=== PATIENT | male | born 2000 | race Two or more races ===

== ENCOUNTER 2024-09-23 20:35 | Emergency (ER) | payer MEDICAID, OTHER ==
[~2024-09-23] VITALS: Ht 175.3 cm; Wt 113.0 kg
--- NOTE | 2024-09-23 20:51 | ED.PDOC ---
History of Present Illness HPI Comments 24 y/o obese M presents with c/c nonradiating, substernal chest pain and headache. Patient reports sudden and unprovoked onset of chest pain, this evening, 2 hours prior to arrival, while at rest, watching television, after dealing with a persistent headache for over the past 2x days. No recent injuries, sick contact, stressors, or strenuous activities endorsed. Only significant history of HTN and medication noncompliance along with occasional alcohol use. Denies any shortness of breath, palpitations, dizziness, vision or speech changes, or further associated symptoms. Upon arrival to ED triage, patient was found hypertensive at 158/104. Chief Complaint: Chest Pain Time Seen by MD: 20:36 Reviewed Notes: Nurses Notes, Medications, Allergies Information Source: Patient Mode of Arrival: Ambulatory Severity: Moderate Timing: Hours Duration: Since onset Prehospital treatment: None Past Medical History PAST MEDICAL HISTORY: HTN Past Medical History (Other): noncompliance Surgical History: Denies all surgeries Family History Family History: Unknown Social History Smoker: Non-Smoker Alcohol: Occasionally Drugs: Denies Drug Use Lives In: Home All Other Systems: Reviewed and Negative (Comprehensive systems review obtained and negative except for what is stated in the HPI.) Physical Exam General Appearance: No Apparent Distress, Obese HEENT: Normal ENT Inspection, Pharynx Normal, TMs Normal Neck: Full Range of Motion, Non-Tender, Normal, Normal Inspection Respiratory: Chest Non-Tender, Lungs Clear, No Accessory Muscle Use, No Respiratory Distress, Normal Breath Sounds Cardiovascular: No Edema, No JVD, No Murmur, No Gallop, Normal Peripheral Pulses, Regular Rate/Rhythm Breast Exam: Deferred Gastrointestinal: No Organomegaly, Non Tender, No Pulsatile Mass, Normal Bowel Sounds, Soft Genitalia: Deferred Pelvic: Deferred Rectal: Deferred Extremities: No calf tenderness, Normal capillary refill, Normal inspection, Normal range of motion, Non-tender, No pedal edema Musculoskeletal : Apperance: Normal Neurologic: Alert, knitting machine fixer II-XII nml as Tested, No Motor Deficits, Normal Affect, Normal Mood, No Sensory Deficits Cerebellar Function: Normal Reflexes: Normal Skin: Dry, Normal Color, Warm Lymphatic: No Adenopathy Was a procedure done? Was a procedure done?: No EKG EKG : Pulse Rate (adult): 87 [place]: Normal Cardiac Rhythm: NSR Block: None Hypertrophy: None ST: Normal Differential Dx Considerations may include: CO, PE, ACS, URI, PNA, angina, anxiety, hypertension - uncontrolled, noncompliance, dehydration, electrolyte imbalance, viral syndrome, among others X-Ray, Labs, Meds, VS Vital Signs Date Time Temp Pulse Resp B/P (MAP) Pulse Ox O2 Delivery O2 Flow Rate FiO2 09/23/24 21:29 83 09/23/24 20:51 87 09/23/24 20:40 87 09/23/24 20:36 98.0 92 18 158/104 (122) 100 98.0 Lab Test 09/23/24 21:28 09/23/24 20:43 Range/Units Troponin I High Sensitivity 3 L 4 </=54 ng/L White Blood Count 8.9 4.4-10.8 10^3/uL Red Blood Count 5.16 4.5-5.90 10^6/uL Hemoglobin 16.3 13.5-17.5 g/dL Hematocrit 46.2 41.0-53.0 % Mean Corpuscular Volume 89.5 80.0-100.0 fL Mean Corpuscular Hemoglobin 31.5 28.0-32.0 pg Mean Corpuscular Hemoglobin Concent 35.2 32.0-36.0 g/dL Red Cell Distribution Width 13.3 11.8-14.3 % Platelet Count 294 140-450 10^3/uL Mean Platelet Volume 8.9 6.9-10.8 fL Neutrophils (%) (Auto) 62.5 37.0-80.0 % Lymphocytes (%) (Auto) 27.6 10.0-50.0 % Monocytes (%) (Auto) 7.6 0.0-12.0 % Eosinophils (%) (Auto) 1.5 0.0-7.0 % Basophils (%) (Auto) 0.8 0.0-2.0 % Neutrophils # (Auto) 5.5 1.6-8.6 10 ^3/uL Lymphocytes # (Auto) 2.4 0.4-5.4 10 ^3/uL Monocytes # (Auto) 0.7 0-1.3 10 ^3/uL Eosinophils # (Auto) 0.1 0-0.8 10 ^3/uL Basophils # (Auto) 0.1 0-0.2 10 ^3/uL Nucleated Red Blood Cells 0.1 % Sodium Level 139 136-145 mmol/L Potassium Level 3.8 3.5-5.1 mmol/L Chloride Level 104 98-107 mmol/L Carbon Dioxide Level 26 20-31 mmol/L Anion Gap 9 5-15 Blood Urea Nitrogen 10 9-23 mg/dL Creatinine 0.85 0.700-1.30 mg/dL Glomerular Filtration Rate Calc 124 >90 mL/min BUN/Creatinine Ratio 11.8 10.0-20.0 Serum Glucose 101 74-106 mg/dL Calcium Level 10.5 H 8.7-10.4 mg/dL [place] [id number] Ph: [phone] DIAGNOSTIC IMAGING Diagnostic Imaging Report : [id number] Signed PATIENT: MICHAEL ROMAN ACCT: [id number] UNIT: [id number] : 2000 LOC: ER ROOM / BED: / AGE / SEX: 24 / M ADM STATUS: REG ER SERVICE 45 ORDERING PHYSICIAN: DEVON HASSAN MD PROCEDURE(s): CXRP - CHEST PORTABLE REASON: chest pain ORDER NUMBER(s): [id number], ACCESSION NUMBER(s): [id number] EXAM: XY CHEST PORTABLE DATE OF SERVICE: 09/23/2024 08:46 PM INDICATION: chest pain TECHNIQUE: Single frontal view. COMPARISON: None FINDINGS: No focal consolidations. No pleural effusion or pneumothorax. Cardiac silhouette is within normal limits. IMPRESSION: 1. No focal consolidations. ATED BY: VIRGILIO ONOFRE MD DICTATED DATE/TIME: 09/23/242102 SIGNED BY: VIRGILIO ONOFRE MD SIGNED DATE/TIME: 09/23/242102 CC: Time of 1ST Reevaluation: 21:06 Reevaluation 1ST: Unchanged Patient Education/Counseling: Diagnosis, Treatment, Need For Follow Up Family Education/Counseling: No Family Present Additional Information Previous visits reviewed: N/A The following tests were ordered, and results were reviewed by me: CXR, EKG, CBC, BMP, troponin Additional Information was gathered from interviewing the following independent historians: N/A I reviewed and agreed with the following test results read by other providers: CXR I discussed treatment and results with medical personnel and: patient SEPSIS Sepsis Screen Physician Orders Electrocardigram (09/23/24 20:37) Troponin-I Hs (09/23/24 23:37) Electrocardigram (09/23/24 21:37) Electrocardigram (09/23/24 23:37) Chest Portable (09/23/24 20:46) Vital Signs Date Time Temp Pulse Resp B/P (MAP) Pulse Ox O2 Delivery O2 Flow Rate FiO2 09/23/24 21:29 83 09/23/24 20:51 87 09/23/24 20:40 87 09/23/24 20:36 98.0 92 18 158/104 (122) 100 98.0 Laboratory Tests Test 09/23/24 20:43 White Blood Count 8.9 10^3/uL (4.4-10.8) Departure 1 Departure Time of Disposition: 23:25 (Patient presented with chest pain that was concerning for possible STEMI, ACS, PE, Pneumonia, Muscle Strain, COPD, Dissection. Data: 1. I ordered and reviewed the result of at least 3 labs including a CBC, BMP, and Troponin. 2. I independently interpreted the following tests: EKG which shows normal sinus rhythm and Chest X-ray which shows a benign chest.Risk:This patient presented with a high risk of morbidity due to further diagnostic testing or treatment and may suffer from an acute cardiac or respiratory disorder. After review of all the data patient is unlikely to have a pe , dissection, and is low risk for acs. Patient is stable at this time.Workup so far is benign and patient will be discharged with outpatient followup. ) Impression: Primary Impression: Acute chest pain Disposition: HOME / SELF CARE / HOMELESS Condition: Stable Additional Instructions: You presented today with chest pain. Your workup today was benign including labs, troponin, EKG, chest x-ray. Your pain may be from musculoskeletal strain, acid reflux, anxiety, or many other factors. It is important to follow up with your regular doctor within 1 week. If your symptoms worsen or you have any other concerns please return to the emergency room. Discharged With: Self Critical Care Note Critical Care Time?: No Stability Stability form required: No Heart Score Heart Score: Heart Score Response (Comments) Value History Slightly Suspicious 0 EKG Normal 0 Age <45 0 Risk Factors 1 or 2 risk factors 1 Troponin Normal limit 0 Total 1 I personally scribed for DEVON HASSAN MD ([facility] on 09/23/24 at 20:51. Electronically submitted by Jonh Hoskins ([email or web address]). I personally scribed for DEVON HASSAN MD ([facility]) on 09/23/24 at 20:52. Electronically submitted by Jonh Hoskins ([email or web address]). I personally scribed for DEVON HASSAN MD ([facility]) on 09/23/24 at 21:34. Electronically submitted by Jonh Hoskins ([email or web address]). DEVON HASSAN MD Sep 23, 2024 20:51
[2024-09-23 20:53] LABS: Hematocrit 46.2 % (41.0-53.0); Hemoglobin 16.3 g/dL (13.5-17.5); Mean Corpuscular Hemoglobin 31.5 pg (28.0-32.0); Mean Corpuscular Volume 89.5 fL (80.0-100.0); Nucleated Red Blood Cells % 0.1 %
[2024-09-23 21:04] LABS: Chloride 104 mmol/L (98-107); Potassium 3.8 mmol/L (3.5-5.1); Sodium 139 mmol/L (136-145)
[2024-09-23 21:05] LABS: Anion Gap 9 (5-15); Carbon Dioxide 26 mmol/L (20-31)
--- NOTE | 2024-09-23 21:05 | DVH ---
EXAM: XY CHEST PORTABLE DATE OF SERVICE: 09/23/2024 08:46 PM INDICATION: chest pain TECHNIQUE: Single frontal view. COMPARISON: None FINDINGS: No focal consolidations. No pleural effusion or pneumothorax. Cardiac silhouette is within normal limits. IMPRESSION: 1. No focal consolidations.
[2024-09-23 21:10] LABS: BUN/Creatinine Ratio 11.8 (10.0-20.0); Blood Urea Nitrogen 10 mg/dL (9-23); Glucose 101 mg/dL (74-106)
[2024-09-23 21:11] LABS: Calcium 10.5 mg/dL (8.7-10.4)
[2024-09-24 01:40] VITALS: BP 132/84; RESP 18; TEMP 97.9; O2SAT 96
[2024-09-24 01:41] VITALS: PULSE 68
[2024-09-24] MEDS: FAMOTIDINE 20 MG TAB PO ONE (01:42)
[2024-09-24] MEDS: MAALOX PLUS or MAALOX 30 ML PO ONE (01:43)
--- NOTE | 2024-09-24 03:24 | ECG ---
[facility] Test Date: 2024-09-23 Test Time: 20:40:05 Pat Name: MICHAEL NORMAN Department: ER Room: Gender: M Equine Intern: SETH : 2000 Requested By: DEVON HASSAN Order Number: [id number] Reading MD: Hiro Luong Measurements Intervals [place] Rate: 87 P: 31 OR: 143 QRS: 93 QRSD: 99 T: 12 QT: 337 QTc: 406 Interpretive Statements Sinus rhythm Borderline right axis deviation Electronically Signed On 09-25-2024 16:59:18 PDT by Hiro Luong Please click the below link to view image of tracing.
--- NOTE | 2024-09-25 07:47 | ECG ---
[facility] Test Date: 2024-09-23 Test Time: 21:29:45 Pat Name: MICHAEL NORMAN Department: ED Room: Gender: M Loftsman/Woman: JILL : 2000 Requested By: DEVON HASSAN Order Number: [id number] Reading MD: Hiro Luong Measurements Intervals [place] Rate: 83 P: 22 [place]: 129 QRS: 86 QRSD: 101 T: 15 QT: 340 QTc: 400 Interpretive Statements Sinus rhythm Electronically Signed On 09-25-2024 16:59:21 PDT by Hiro Luong Please click the below link to view image of tracing.
== END 2024-09-24 01:43 | disposition home or self-care (01) ==
LOC: ER 20:35
DX: R07.2 Precordial pain (principal); F10.90 Alcohol use, unspecified, uncomplicated; I10 Essential (primary) hypertension; E66.9 Obesity, unspecified; Z68.36 Body mass index [BMI] 36.0-36.9, adult; Y90.9 Presence of alcohol in blood, level not specified
CPT/HCPCS: 36415; 71045; 80048; 84484; 85025; 93005

== ENCOUNTER 2024-10-16 23:44 | Emergency (ER) | payer MEDICAID ==
[~2024-10-16] VITALS: Ht 175.3 cm; Wt 117.0 kg
[2024-10-16 23:46] VITALS: BP 144/89; PULSE 76; RESP 16; TEMP 99.3; O2SAT 99
--- NOTE | 2024-10-17 00:37 | ED.PDOC ---
HPI (NEURO) HPI Comments 24-year-old male presents to ER with complaints of headache x1 day. Patient reports that he woke up with 1/10 left-sided occipital headache with radiation towards the left-sided neck at 1:00 a.m. prior to arrival to ER. Denies use of medications for current symptoms. Patient presents to ER ambulatory on arrival, alert oriented x4, with steady gait, in no distress. Denies fever, head injury, nausea/vomiting, numbness/tingling, dizziness, vision changes, confusion, runny nose, recent illness or any further symptoms/complaints Chief Complaint: Headache Time Seen by MD: 00:05 Primary Care Provider: UNKNOWN Reviewed Notes: Nurses Notes, Medications, Allergies Information Source: Patient Mode of Arrival: Ambulatory Past Medical History PAST MEDICAL HISTORY: HTN Surgical History: Denies all surgeries Family History Family History: Unknown Social History Smoker: Non-Smoker Alcohol: Occasionally Drugs: Denies Drug Use Lives In: Home Constitutional: denies: chills, diaphoresis, fatigue, fever, malaise, sweats, weakness, others EENTM: denies: blurred vision, double vision, ear bleeding, ear discharge, ear drainage, ear pain, ear ringing, eye pain, eye redness, hearing loss, mouth pain, mouth swelling, nasal discharge, nose bleeding, nose congestion, nose pain, photophobia, tearing, throat pain, throat swelling, voice changes, others Respiratory: denies: cough, hemoptysis, orthopnea, SOB at rest, shortness of breath, SOB with excertion, stridor, wheezing, others Cardiovascular: denies: chest pain, dizzy spells, diaphoresis, Dyspnea on exertion, edema, irregular heart beat, left arm pain, lightheadedness, palpitations, PND, syncope, others Gastrointestinal: denies: abdomen distended, abdominal pain, blood streaked bowels, constipated, diarrhea, dysphagia, difficulty swallowing, hematemesis, melena, nausea, poor appetite, poor fluid intake, rectal bleeding, rectal pain, vomiting, others Genitourinary: denies: burning, dysuria, flank pain, frequency, hematuria, incontinence, penile discharge, penile sore, pain, testicle pain, testicle swelling, urgency, others Neurological: reports: others (As stated in HPI) Musculoskeletal: denies: back pain, gout, joint pain, joint swelling, muscle pain, muscle stiffness, neck pain, others Integumetry: denies: bruises, change in color, change in hair/nails, dryness, laceration, lesions, lumps, rash, wounds, others Allergic/Immunocompromised: denies: Difficulty Healing, Frequent Infections, Hives, Itching, others Hematologic/Lymphatic: denies: anemia, blood clots, easy bleeding, easy bru ising, swollen glands, others Endocrine: denies: excessive hunger, excessive sweating, excessive thirst, e xcessive urination, flushing, intolerance to cold, intolerance to heat, unexplained weight gain, unexplained weight loss, others Psychiatric: denies: anxiety, bipolar disorder, depression, hopeless, panic disorder, schizophrenia, sleepless, suicidal, others Physical Exam General Appearance: No Apparent Distress, Obese HEENT: Normal ENT Inspection, PERRL/EOMI, Pharynx Normal, TMs Normal Neck: Full Range of Motion, Non-Tender, Normal Respiratory: Chest Non-Tender, Lungs Clear, No Accessory Muscle Use, No Respiratory Distress, Normal Breath Sounds Cardiovascular: No Murmur, No Gallop, Regular Rate/Rhythm Breast Exam: Deferred Gastrointestinal: NOT DONE Genitalia: Deferred Pelvic: Deferred Rectal: Deferred Extremities: Normal capillary refill, Normal range of motion Neurologic: Alert, orthopedic coder II-XII nml as Tested, No Motor Deficits, Normal Affect, Normal Mood, No Sensory Deficits Cerebellar Function: Normal Reflexes: Normal Skin: Dry, Normal Color, Warm Lymphatic: No Adenopathy Was a procedure done? Was a procedure done?: No Sedation Sedation?: No Differential Diagnosis (SZ) Headache: Cluster, Subarachnoid Hemorrhage, Subdural Hemorrhage, Mass Lesion, Other (fracture, closed head injury) X-Ray, Labs, Meds, VS Vital Signs Date Time Temp Pulse Resp B/P (MAP) Pulse Ox O2 Delivery O2 Flow Rate FiO2 10/16/24 23:46 99.3 76 16 144/89 99 99.3 Patient had improvement in symptoms and in no distress prior to discharge Advised to drink plenty of fluids Advised to follow up with PCP in 1-2 days Patient verbalized understanding and agreeable with current plan of care Advised to return to ER immediately if symptoms worsen Time of 1ST Reevaluation: 00:12 Reevaluation 1ST: N/A Patient Education/Counseling: Diagnosis, Treatment, Prognosis, Need For Follow Up Family Education/Counseling: No Family Present Departure 1 Departure Time of Disposition: 00:36 Impression: Primary Impression: Tension headache Disposition: 01 HOME / SELF CARE / HOMELESS Condition: Stable Discharged With: Self Critical Care Note Critical Care Time?: No Stability Stability form required: No Heart Score Heart Score: Heart Score Response (Comments) Value History N/A 0 EKG N/A 0 Age N/A 0 Risk Factors N/A 0 Troponin N/A 0 Total 0 DAVID CHOWDHURY Oct 17, 2024 00:37
== END 2024-10-17 00:48 | disposition home or self-care (01) ==
LOC: ER 23:44
DX: G44.209 Tension-type headache, unspecified, not intractable (principal); I10 Essential (primary) hypertension; F10.90 Alcohol use, unspecified, uncomplicated; Y90.9 Presence of alcohol in blood, level not specified

== ENCOUNTER 2024-10-25 01:08 | Emergency (ER) | payer MEDICAID ==
[~2024-10-25] VITALS: Ht 175.3 cm; Wt 118.1 kg
[2024-10-25] MEDS: NITROGLYCERIN 0.4 MG SL TAB SL ONE (01:43)
[2024-10-25] MEDS: ASPirin-EC 325mg tab PO ONE (01:44)
[2024-10-25 01:45] VITALS: BP 148/95; RESP 19; TEMP 98; O2SAT 96
--- NOTE | 2024-10-25 01:48 | ED.PDOC ---
HPI Comments HPI: 24 year old male who came to ER for high blood pressure. Patient with hypertension but has not been taking his medications. Had substernal chest pains yesterday that lasted 30 minutes that resolved spontaneously. About 3 hours prior to arrival, patient was driving well-developed chest pains again, lasting 20-30 minutes, associated with left arm numbness, and shortness a breath. Upon arrival blood pressure was 162/99 mm Hg. Denies any family history of coronary artery disease. Initial Vitals BP: 168/99 HR: 102 RR: 18 O2: 99% Temp: 98.6 Past Medical History: Hypertension Past Surgical History: Denies Social History: (+) occasional ETOH (drank whiskey 3 days ago), Denies smoking, and drug use. Medications: Allergies: Penicillin HPI: Poor Historian. REVIEW OF SYSTEMS: CONSTITUTIONAL: Denies acute: fever, diaphoresis, chills, generalized weakness. HEAD: Denies acute: headache, photophobia Eyes: Denies acute: Double vision, vision loss, eye pain, eye discharge. EARS: Denies acute: tinnitus, hearing loss, ear discharge, ear pain, THROAT: Denies acute: sore throat, swelling, difficulty swallowing , pain with swallowing, change in voice. NECK: Denies acute: neck pain, neck swelling, stiff neck. HEART: Denies acute : , palpitations, LUNGS: Denies acute: wheezing, cough, hemoptysis ABDOMEN: Denies acute: abdominal pain, Nausea, Vomiting, diarrhea, melena , hematemesis, hematochezia SKIN: Denies acute: rash, redness, lesions, itchiness. EXTREMITIES: Denies acute: calf pain, numbness, tingling, weakness, denies pain in extremity. Denies acute: Low back pain. Neuro: Denies acute: focal neurological deficit, motor or sensory focal neurological deficit, tremors, seizure like activity, confusion, dizziness, change in mental status, loss of bowel or bladder function, cauda equina like symptoms. : Denies acute: dysuria, hematuria, flank pain, increase in urinary frequency. PSYCH: Denies acute: hallucination, suicidal ideation, homicidal ideation. PHYSICAL EXAM: General: ---no-----acute distress, awake and alert. Head: normocephalic, atraumatic. Neck: supple, trachea is midline, no swelling. Throat: Normal phonation. Eyes:, no erythema, no purulent discharge, no proptosis, no icterus. Heart: regular tachycardic, no significant murmur appreciated. Lungs: no apparent respiratory distress, Able to speak in full sentences. No wheezing, no rhonchi, no crackles. No stridors Clear to auscultation bilaterally. Abdomen: non tender to palpation, non distended, soft, no guarding, no rebound, + bowel sounds. Neuro: Awake, Alert, oriented to name, self, situation, follows commands GCS=15. Speech is normal. Skin: no petechia, no purpura, no cyanosis, non-pale, not jaundice. Lower extremities: --no - Pitting edema no deformity, no focal swelling, no calf TTP. Makes eye contact. moves all four extremities. Face: no apparent facial droop. Ambulating in the ED independently. ED COURSE: DISCLAIMER: This medical document was created using an electronic medical record system with voice recognition software and computerized dictation system. Although this document has been carefully reviewed, there might still be some phonetic and typographical errors. Occasional wrong-word or "sound-alike" substitutions may have occurred due to the inherent limitations of voice recognition software. These areas are purely typographical due to imperfections of the software programs and do not reflect any compromise in the patient's medical care. Please read the chart carefully and recognize, using context, where these substitutions have occurred. Chief Complaint: High Blood Pressure Time Seen by MD: 01:48 Primary Care Provider: UNKNOWN Reviewed Notes: Allergies Allergies: Coded Allergies: Penicillins (Verified Allergy, Unknown, 10/25/24) Information Source: Patient Mode of Arrival: Ambulatory Past Medical History PAST MEDICAL HISTORY: HTN Surgical History: Denies all surgeries Family History Family History: Unknown Social History Smoker: Non-Smoker Alcohol: Occasionally Drugs: Denies Drug Use Lives In: Home EKG EKG : Pulse Rate (adult): 103 Cardiac Rhythm: ST Was a procedure done? Was a procedure done?: No X-Ray, Labs, Meds, VS Vital Signs Date Time Temp Pulse Resp B/P (MAP) Pulse Ox O2 Delivery O2 Flow Rate FiO2 10/25/24 01:52 103 10/25/24 01:45 105 19 96 Room Air 10/25/24 01:45 98.0 105 19 148/95 (112) 96 98.0 10/25/24 01:19 103 10/25/24 01:10 98.6 102 18 168/99 99 98.6 Lab Test 10/25/24 02:30 10/25/24 01:16 Range/Units Troponin I High Sensitivity Pending < 3 L </=54 ng/L White Blood Count 8.6 4.4-10.8 10^3/uL Red Blood Count 5.46 4.5-5.90 10^6/uL Hemoglobin 17.1 13.5-17.5 g/dL Hematocrit 48.9 41.0-53.0 % Mean Corpuscular Volume 89.4 80.0-100.0 fL Mean Corpuscular Hemoglobin 31.2 28.0-32.0 pg Mean Corpuscular Hemoglobin Concent 34.9 32.0-36.0 g/dL Red Cell Distribution Width 13.0 11.8-14.3 % Platelet Count 308 140-450 10^3/uL Mean Platelet Volume 9.3 6.9-10.8 fL Neutrophils (%) (Auto) 57.9 37.0-80.0 % Lymphocytes (%) (Auto) 32.2 10.0-50.0 % Monocytes (%) (Auto) 7.4 0.0-12.0 % Eosinophils (%) (Auto) 1.6 0.0-7.0 % Basophils (%) (Auto) 0.9 0.0-2.0 % Neutrophils # (Auto) 5.0 1.6-8.6 10 ^3/uL Lymphocytes # (Auto) 2.8 0.4-5.4 10 ^3/uL Monocytes # (Auto) 0.6 0-1.3 10 ^3/uL Eosinophils # (Auto) 0.1 0-0.8 10 ^3/uL Basophils # (Auto) 0.1 0-0.2 10 ^3/uL Nucleated Red Blood Cells 0.2 % Sodium Level 140 136-145 mmol/L Potassium Level 3.4 L 3.5-5.1 mmol/L Chloride Level 104 98-107 mmol/L Carbon Dioxide Level 27 20-31 mmol/L Anion Gap 9 5-15 Blood Urea Nitrogen 6 L 9-23 mg/dL Creatinine 0.86 0.700-1.30 mg/dL Glomerular Filtration Rate Calc 124 >90 mL/min BUN/Creatinine Ratio 7.0 L 10.0-20.0 Serum Glucose 103 74-106 mg/dL Calcium Level 9.7 8.7-10.4 mg/dL Current Medications Medications (Trade) Dose Ordered Sig/Satinder Route Start Time Stop Time Status Last Admin Aspirin (Ecotrin Enteric Coated Tablet) 325 mg ONCE ONCE PO 10/25/24 01:30 10/25/24 01:31 DC 10/25/24 01:44 Time of 1ST Reevaluation: 01:52 Reevaluation 1ST: Unchanged Patient Education/Counseling: Diagnosis, Treatment Family Education/Counseling: No Family Present SEPSIS Sepsis Screen Date sepsis recognized/suspect: Oct 25, 2024 Time Sepsis recognized/suspect: 109 Recent Procedure: No On Antibiotic Therapy: No Respiratory Rate >20: No Heart Rate >90: Yes Temp<36 C (96.8 F) or >38.3 C: No SBP <90 or MAP <65 mmHG: No New Acute Mental Status Change: No Is the patient on CPAP, BIPAP,: No Physician Orders Tobacco Warehouse Agent (10/25/24 ) Drug Screen (10/25/24 01:16) Chest Portable (10/25/24 01:16) Electrocardigram (10/25/24 01:16) Troponin-I Hs (10/25/24 02:16) Troponin-I Hs (10/25/24 04:16) Electrocardigram (10/25/24 02:16) Electrocardigram (10/25/24 04:16) Vital Signs Date Time Temp Pulse Resp B/P (MAP) Pulse Ox O2 Delivery O2 Flow Rate FiO2 10/25/24 01:52 103 10/25/24 01:45 105 19 96 Room Air 10/25/24 01:45 98.0 105 19 148/95 (112) 96 98.0 10/25/24 01:19 103 10/25/24 01:10 98.6 102 18 168/99 99 98.6 Laboratory Tests Test 10/25/24 01:16 White Blood Count 8.6 10^3/uL (4.4-10.8) Medications Medications Dose Ordered Sig/Satinder Route Start Time Stop Time Status Last Admin Dose Admin Aspirin 325 mg ONCE ONCE PO 10/25/24 01:30 10/25/24 01:31 DC 10/25/24 01:44 Departure 1 Departure Time of Disposition: 03:30 Impression: Primary Impression: Hypertension Additional Impression: Noncompliance with medication regimen Disposition: HOME / SELF CARE / HOMELESS Condition: Stable Additional Instructions: Additional instructions: You MUST follow-up with your primary care/family doctor in 1 to 2 days. If you are unable to see your primary care/family doctor, please return to our emergency room for re-assessment and re-evaluation in 1 to 2 days. Return to the emergency room here in our facility or to the nearest ER [facility] if your symptoms change or worsen. CONSULTATIONS: you MUST Follow-up for consultation as soon as possible with: ---cardiology in 1-2 days. You MUST call the consultants office yourself to make an appointment. You may need to arrange that through your insurance and/or your primary/family doctor. If you are unable to see the senior health consultant in 1 to 2 days, you must return to our emergency room (or any other ER of your choice) for re-assessment and re- evaluation. Adequate fluid hydration. Avoid alcohol. Monitoring blood pressure at home at least 3 times a day. You must comply with your blood pressure medications to prevent further deterioration and . Discharged With: Self Critical Care Note Critical Care Time?: No Heart Score Heart Score: Heart Score Response (Comments) Value History Slightly Suspicious 0 EKG Normal 0 Age <45 0 Risk Factors 1 or 2 risk factors 1 Troponin Normal limit 0 Total 1 I personally scribed for JENNIFER RODRIGUEZ DO ([email or web address]) on 10/25/24 at 01:48. Electronically submitted by Augustin Saba ([email or web address]). I personally scribed for JENNIFER RODRIGUEZ DO ([email or web address]) on 10/25/24 at 01:52. Electronically submitted by Augustin Saba ([email or web address]). I personally scribed for JENNIFER RODRIGUEZ DO ([email or web address]) on 10/25/24 at 01:55. Electronically submitted by Augustin Saba ([email or web address]). I personally scribed for JENNIFER RODRIGUEZ DO ([email or web address]) on 10/25/24 at 03:29. Electronically submitted by Augustin Saba ([email or web address]). JENNIFER RODRIGUEZ DO Oct 25, 2024 01:48
[2024-10-25 01:50] LABS: Hematocrit 48.9 % (41.0-53.0); Hemoglobin 17.1 g/dL (13.5-17.5); Mean Corpuscular Hemoglobin 31.2 pg (28.0-32.0); Mean Corpuscular Volume 89.4 fL (80.0-100.0); Nucleated Red Blood Cells % 0.2 %
[2024-10-25 01:52] VITALS: PULSE 103
[2024-10-25 02:01] LABS: Chloride 104 mmol/L (98-107); Sodium 140 mmol/L (136-145)
[2024-10-25 02:02] LABS: Anion Gap 9 (5-15); Calcium 9.7 mg/dL (8.7-10.4); Carbon Dioxide 27 mmol/L (20-31)
[2024-10-25 02:05] LABS: Potassium 3.4 mmol/L (3.5-5.1)
[2024-10-25 02:07] LABS: BUN/Creatinine Ratio 7.0 (10.0-20.0); Glucose 103 mg/dL (74-106)
[2024-10-25 02:09] LABS: Blood Urea Nitrogen 6 mg/dL (9-23)
--- NOTE | 2024-10-25 03:56 | DVH ---
CHEST RADIOGRAPH Indication: cp Technique: Single frontal view of the chest was obtained Comparison: XY CHEST PORTABLE on DOS: 09/23/24 FINDINGS: Lines and Tubes: None Lungs: No focal consolidation. Pleura: No effusion. No pneumothorax. Cardiomediastinal contours: Unremarkable Bones: No acute osseous abnormality. IMPRESSION: 1. No acute cardiopulmonary disease.
--- NOTE | 2024-10-25 06:42 | ECG ---
[facility] Test Date: 2024-10-25 Test Time: 01:19:52 Pat Name: MICHAEL NORMAN Department: ED Room: Gender: M [employer] Nurse: : [id number] Requested By: JENNIFER RODRIGUEZ Order Number: [id number] Reading MD: Hiro Luong Measurements Intervals [place] Rate: 103 P: 25 MD: 120 QRS: 86 QRSD: 94 T: 40 QT: 311 QTc: 407 Interpretive Statements Sinus tachycardia Electronically Signed On 10-29-2024 14:28:14 PDT by Hiro Luong Please click the below link to view image of tracing.
== END 2024-10-25 04:10 | disposition home or self-care (01) ==
LOC: ER 01:14
DX: I10 Essential (primary) hypertension (principal); F10.90 Alcohol use, unspecified, uncomplicated; Z91.148 Patient's other noncompliance with medication regimen for other reason; Z88.0 Allergy status to penicillin; Y90.9 Presence of alcohol in blood, level not specified
CPT/HCPCS: 36415; 71045; 80048; 84484; 85025; 93005